=== PATIENT | male | born 1965 | race Asian ===

== ENCOUNTER 2019-06-28 05:56 | Emergency (ER) | payer BC ==
[~2019-06-28] VITALS: Ht 170.2 cm; Wt 78.9 kg
[2019-06-28 05:56] VITALS: BP_SYST 150
[~2019-06-28 05:56] MED LIST: NORCO5 PO
--- NOTE | 2019-06-28 06:08 | NUR ---
RECEIVED REPORT FROM ELEUTERIO GARCIA. PT. HERE FOR PALPITATION AND WARM SENSATION. HAS HAD DIARRHEA FOR 3 DAYS BUT STOPPED SUNDAY. PT. ASYMPTOMATIC NOW AT THIS TIME.
--- NOTE | 2019-06-28 06:08 | NUR ---
Pt BIB BLS, placed to ER bed 05. Report given to RADHA Hanks.
--- NOTE | 2019-06-28 06:11 | NUR ---
ER at bedside examining patient.
[2019-06-28] MEDS ORDERED: NACL 0.9% 1,000 ML IV ONE (06:15)
--- NOTE | 2019-06-28 06:22 | NUR ---
GAUGE 18 IV LINE ESTABLISHED TO THE RIGHT WRIST. BLOOD ALSO DRAWN AND SENT TO THE LAB. NS 1 LITER BOLUS GIVEN ORDERED.
--- NOTE | 2019-06-28 06:32 | NUR ---
12 LEAD EKG DONE. REPORT HANDED OVER TO ER-MD TO REVIEW.
[2019-06-28 06:49] LABS: BASOPHILS % (AUTO) 0.5 % (0.0-2.0); EOSINOPHILS # (AUTO) 0.1 K/uL (0.0-0.4); EOSINOPHILS % (AUTO) 1.7 % (0.0-4.0); HEMATOCRIT 46.9 % (36-54); HEMOGLOBIN 15.7 g/dL (14.0-18.0); LYMPHOCYTES # (AUTO) 1.7 K/uL (1.0-5.5); LYMPHOCYTES % (AUTO) 27.7 % (20.5-51.5); MEAN CORPUSCULAR HEMOGLOBIN 31 pg (27-31); MEAN CORPUSCULAR HGB CONC 33 % (32-36); MEAN CORPUSCULAR VOLUME 93 fL (79.0-98.0); MONOCYTES # (AUTO) 0.3 K/uL (0.0-1.0); MONOCYTES % (AUTO) 5.5 % (1.7-9.3); NEUTROPHILS % (AUTO) 64.6 % (40.0-70.0); PLATELET COUNT (AUTO) 173 K/uL (130-430); RED BLOOD CELL COUNT(AUTO) 5.06 MIL/uL (4.2-6.2); RED CELL DISTRIBUTION WIDTH 13.2 % (9.0-15.0); WHITE BLOOD COUNT (AUTO) 6.2 K/uL (4.8-10.8)
[2019-06-28 07:06] LABS: ANION GAP 7 (5-15); CALCIUM 8.9 mg/dL (8.4-11.0); CHLORIDE 103 mmol/L (98-107); CREATININE 0.91 mg/dL (0.55-1.30); GLUCOSE 110 mg/dL (70-99); POTASSIUM 3.4 mmol/L (3.5-5.1); SODIUM SERUM 140 mmol/L (136-145); UREA NITROGEN, BLOOD 16 mg/dL (8-21)
[2019-06-28 07:14] LABS: GFR AFRICAN AMERICAN 112 mL/min (>90)
[2019-06-28 07:18] LABS: ALANINE AMINOTRANSFERASE 62 U/L (12-78); ALBUMIN 3.8 g/dL (3.4-4.8); ASPARTATE AMINOTRANSFERASE 27 U/L (10-37); TOTAL BILIRUBIN 0.4 mg/dL (0.0-1.0)
--- NOTE | 2019-06-28 07:25 | NUR ---
ENDORSED CARE TO VIVIAN HOOD.
--- NOTE | 2019-06-28 07:30 | NUR ---
Pt A&Ox4, VSS, respirations even and unlabored.
--- NOTE | 2019-06-28 08:20 | NUR ---
US at bedside
[2019-06-28 08:23] LABS: BILIRUBIN,URINE NEGATIVE (NEGATIVE); BLOOD, URINE NEGATIVE (NEGATIVE); CLARITY/URINE CLEAR (CLEAR); COLOR,URINE YELLOW (YELLOW); GLUCOSE,URINE NEGATIVE (NEGATIVE); KETONES,URINE NEGATIVE (NEGATIVE); LEUKOCYTE ESTERASE ,URINE NEGATIVE (NEGATIVE); NITRITE, URINE NEGATIVE (NEGATIVE); PH,URINE 6.5 (5.0-8.0); PROTEIN URINE NEGATIVE (NEGATIVE); UROBILINOGEN,URINE 0.2 (0.2-1.0)
[2019-06-28 10:59] VITALS: BP_SYST 142
--- NOTE | 2019-06-28 10:59 | NUR ---
Patient given written and verbal discharge instructions and verbalizes understanding. ER MD discussed with patient the results and treatment provided. Patient in stable condition. ID arm band removed. IV catheter removed intact and dressing applied, no active bleeding. Rx of Cipro given. Patient educated on pain management and to follow up with PMD. Pain Scale 2/10 tolerable for patient . Opportunity for questions provided and answered. Medication side effect fact sheet provided.
== END 2019-06-28 10:59 | disposition home or self-care (01) ==
LOC: SED 05:56
DX: R19.7 Diarrhea, unspecified (principal); R00.2 Palpitations
CPT/HCPCS: 36415; 80053; 81003; 82550; 83880; 84484; 85025; 93005; 93970; 96360; 99284; J7030